=== PATIENT | female | born 1960 | race Caucasian/White ===

== ENCOUNTER 2022-10-09 13:58 | Emergency (ER) | payer BC ==
[2022-10-09] MEDS ORDERED: ZPAK PO (16:44)
[2022-10-09] MEDS ORDERED: PROAIR HFA IN (16:44)
[2022-10-09] MEDS ORDERED: PREDNISONE20 MG PO (16:44)
[2022-10-09] MEDS ORDERED: ALBUTEROL SUL1.25 MG PO (16:44)
[2022-10-09] MEDS ORDERED: ZYRTEC10 MG PO (16:44)
[2022-10-09 17:06] VITALS: BP 126/72
== END 2022-10-09 16:45 | disposition home or self-care (01) | DRG 192 ==
LOC: ED 13:58
DX: J44.1 Chronic obstructive pulmonary disease with (acute) exacerbation (principal); J45.909 Unspecified asthma, uncomplicated; Z20.822 Contact with and (suspected) exposure to COVID-19; F17.210 Nicotine dependence, cigarettes, uncomplicated; R06.02 Shortness of breath

== ENCOUNTER 2024-11-26 13:40 | Emergency (ER) | payer BC ==
[~2024-11-26] VITALS: Ht 172.7 cm; Wt 97.0 kg
[2024-11-26] VITALS (10 sets, daily range): BP systolic 66–156; BP diastolic 51–85
[~2024-11-26 13:40] MED LIST: ALBUTEROL SUL1.25 MG PO; PREDNISONE20 MG PO; PROAIR HFA IN; ZPAK PO; ZYRTEC10 MG PO
[2024-11-26] MEDS ORDERED: IPRATROPIUM-Albuterol 0.5MG-2.5MG/3 ML NEB ONE (14:00)
[2024-11-26 14:09] LABS: EOS% 2.9 % (0-8); HEMATOCRIT 49.6 % (37.0-47.0); HEMOGLOBIN 16.4 g/dl (12.0-16.0); IMMATURE GRANULOCYTES 0.1 % (0.0-5.0); LYMPH% 23.6 % (15-41); MEAN CELL VOLUME 90.3 fL CALC (80.0-100.0); MEAN CORPUSCULAR HGB 29.9 pG CALC (26.0-32.0); MEAN CORPUSCULAR HGB CONC 33.1 g/dL CAL (32.0-36.0); MONO% 8.8 % (2-13); NEUT# 5.18 thou/uL (2.00-7.15); NEUT% 63.6 % (42-76); RED BLOOD COUNT 5.49 mill/uL (4.20-5.60); RED CELL DISTRI WIDTH 13.9 % (11.5-15.5)
[2024-11-26 14:21] LABS: ALBUMIN 4.4 g/dL (3.2-5.0); ALKALINE PHOSPHATASE 86 u/l (38-126); ANION GAP 14 (6-22 (CALC)); BILIRUBIN, TOTAL 0.6 mg/dL (0.02-1.3); BUN 8 mg/dL (8-23); BUN/CREATININE RATIO 13 (12-20 (CALC)); CARBON DIOXIDE 26 mmol/l (22-30); CHLORIDE 105 mmol/l (95-108); CREATININE 0.7 mg/dL (0.5-1.0); ESTIMATED GFR 97 ML/MIN (>=90 (CALC)); SGOT/AST 27 u/l (9-36); SODIUM 140 mmol/l (137-146); TOTAL PROTEIN 7.3 g/dL (6.3-8.2)
[2024-11-26 14:26] LABS: D-DIMER 1.19 mg/L (0.19-0.60)
[2024-11-26 14:28] LABS: PROTHROMBIN TIME 10.3 SECONDS (9.0-12.5)
[2024-11-26] MEDS ORDERED: cefTRIAXone SODIUM 2 GM in SODIUM CHLORIDE 0.9% 100 ML IV ONE (16:15)
[2024-11-26] MEDS ORDERED: AMOX/K CLAV875 M1 PO (17:20)
== END 2024-11-26 17:40 | disposition home or self-care (01) | DRG 203 ==
LOC: ED 13:40
PROVIDERS: Clinical Nurse Specialist Emergency
DX: J40 Bronchitis, not specified as acute or chronic (principal); F17.210 Nicotine dependence, cigarettes, uncomplicated
CPT/HCPCS: J0696; Q9967